=== PATIENT | male | born 1955 | race Caucasian/White ===

== ENCOUNTER 2022-03-09 13:32 | Emergency (ER) | payer MEDICARE, OTHER ==
[2022-03-09 14:15] LABS: HEMOGLOBIN 16.2 gm/dl (14.0-17.5); RED BLOOD COUNT 5.25 M/UL (4.20-5.50); WHITE BLOOD COUNT 8.8 K/UL (4.5-11.0)
[2022-03-09] MEDS ORDERED: ZOFRAN 4 MG TAB4 MG PO (17:27)
[2022-03-09] MEDS ORDERED: HYDROCODON-ACE1 EAC4 PO (17:27)
== END 2022-03-09 17:39 | disposition home or self-care (01) ==
LOC: ER1 13:32
DX: N13.2 Hydronephrosis with renal and ureteral calculous obstruction (principal)
CPT/HCPCS: 80053; 81001; 83690; 85025; 86140; 96361; 96374; 96375; 99284; C9113; J1885; J2405